=== PATIENT | female | born 1990 | race Caucasian/White ===

== ENCOUNTER 2016-04-27 21:29 | Emergency (ER) | payer BC, MEDICAID ==
[~2016-04-27 21:29] MED LIST: /ESOM40CA GT; ACET50TA PO; DOCU10ELUD PO; IBUP600T26 PO; IBUP80TA PO; KEFL500C7 PO; MOM30SS PO; VALT1TAB PO
--- NOTE | 2016-04-27 23:30 | REPUSA ---
CLINICAL HISTORY: determination. TECHNIQUE: Transabdominal and endovaginal ultrasound of the pelvis was performed. FINDINGS: Anteverted uterus with single live station correlating to 13 weeks, 5 days with expected date of deli very 10/28/2016. heart rate of 157 BPM. motion observed. No subchorionic hemorrhage. Anterior placenta without evidence of previa or abruption. Maternal adnexal and cul-de-sac regions are grossly unremarkable. Both ovaries are grossly unremarkable. No free fluid. IMPRESSION: Anteverted uterus with single live station correlating to 13 weeks, 5 days with expected date of deli very 10/28/2016.
[2016-04-27] MEDS ORDERED: ALBUTEROL SULFATE 2.5 MG/0.5 ML INH NEB SOLN As Ordered ONE (23:48)
[2016-04-28] MEDS ORDERED: ALBUTEROL 90 MCG/ACT 8GM HFA INHALER As Ordered ONE (00:50)
[2016-04-28] MEDS ORDERED: NITROFURANTOIN (MACROBID) 100 MG CAP As Ordered ONE (01:44)
--- NOTE | 2016-04-28 01:56 | EDDOCDS ---
Physician Documentation [facility] Name: Olivia Lowe Age: 26 yrs Sex: Female : 1990 Arrival Date: 04/27/2016 Time: 21:29 Bed PD Private MD: NO PRIMARY PHYSICIAN, . Disposition: 04/28/16 01:43 Discharged to Home/Self Care. Impression: Other specified related conditions - PELVIC CRAMPING, Urinary tract infection, site not specified. - Condition is Stable. - Discharge Instructions: and Urinary Tract Infection. - Prescriptions for Macrobid 100 mg Oral Capsule - take 100 milligram by ORAL route every 12 hours for 10 days; 20 capsule. - Medication Reconciliation, Local Pharmacy Hours form. - Follow up: Private Physician; When: 1 - 2 days; Reason: Recheck today's complaints, Continuance of care. - Problem is new. - Symptoms have improved. - Notes: USE MEDICATION INSTRUTCED, FOLLOW UP WITH YOUR DOCTOR, RETURN TO THE ER IF THE SYMPTOMS WORSEN OR BECOME CONCERNING Historical: - Allergies: SULFA (SULFONAMIDES); - Home Meds: 1. levothyroxine 125 mcg Oral cap 1 cap once daily - PMHx: Hypothyroidism; Thyroid problem; - PSHx: D & C; - Social history: Smoking status: Patient uses tobacco products, light tobacco smoker. No barriers to communication noted, The patient speaks fluent Tunisian, Speaks appropriately for age. - Family history: Not pertinent. - : The pt / caregiver states he / she is not on anticoagulants. Home medication list is obtained from the patient. - Exposure Risk Screening:: None identified. 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 4 in. (162.56 cm) (R); Pain 6/10; 04/28 01:53 BP 126 / 59 LA Sitting (auto/); Pulse 94; Resp 18 S; Temp 97.5(O); Pulse Ox 98% on R/A; af2 04/27 21:31 Body Mass Index 30.90 (81.65 kg, 162.56 cm) gr2 MDM: 04/27 21:58 US 1st trimester Ordered. EDMS 23:27 UA Ordered. EDMS 23:34 Albuterol 5 mg Nebulizer once ordered. le 23:34 Call Respiratory ordered. le 23:43 Call Respiratory complete. sls1 23:49 Financial registration complete. pm4 23:50 [facility] Payment Agreement was scanned into [employer] and attached to record. pm4 04/28 00:47 Ventolin Inhaler 2 puffs Inhalation once; dispense home with patient ordered. le 01:05 US 1st trimester Reviewed. ck7 01:38 UA Reviewed. ck7 01:43 Nitrofurantoin 100 mg PO once ordered. ck7 Administered Medications: 04/27 23:51 Drug: Albuterol 5 mg [albuterol sulfate 2.5 mg/0.5 mL solution for nebulization (1 mL)] jc3 Route: Nebulizer; 04/28 01:53 Follow up: Response: No Adverse Reaction af2 00:52 Drug: Ventolin 2 puffs [Ventolin HFA 90 mcg/actuation aerosol inhaler (2 puffs)] Route: ka4 Inhalation; 01:52 Drug: Nitrofurantoin 100 mg Route: PO; af2 01:53 Follow up: Response: Pt left department before re-evaluation is appropriate af2 Signatures: Dispatcher [employer] EDMS Otto Fairbanks RN RN cz Westcott, Lisa, SENIOR STATISTICIAN SENIOR STATISTICIAN Keren Sellers RN RN sls1 Stew Bearden, RPA-C RPA-Cck7 Donna MerrittRN RN af2 David Irizarry, Reg Reg pm4 Vicente Montoya jc3 Sadie Evans LPN ka4 The chart was reviewed and I authenticate all verbal orders and agree with the evaluation and treatment provided.Attachments: 04/27 23:50 [facility] [place] Payment Agreement pm4 MTDD
--- NOTE | 2016-04-28 01:56 | EDDOCDS ---
Nurse's Notes [facility] Name: Olivia Lowe Age: 26 yrs Sex: Female : 1990 Arrival Date: 04/27/2016 Time: 21:29 Bed PD Private MD: NO PRIMARY PHYSICIAN, . Diagnosis: Other specified related conditions-PELVIC CRAMPING;Urinary tract infection, site not specified Presentation: 04/27 21:33 Presenting complaint: Patient states: low back pain right side to center cramping for 7 cz hours pt is 13 weeks no bleeding. Risk factors: the patient reports no vaginal bleeding. Adult Sepsis Screening: The patient does not have new or worsening altered mentation. Patient's respiratory rate is less than 22. Systolic blood pressure is greater than 100. Patient has a qSOFA score of 0- Negative Sepsis Screen. Suicide/Homicide risk assessment- the patient denies having any suicidal and/or homicidal ideations and does not present with any other emotional, behavioral or mental health complaints. Status: Patient is not a office services representative or dependent. Transition of care: patient was not received from another setting of care. 21:33 Acuity: ALCIDES Level 3 cz 21:33 Method Of Arrival: Walkin/Carried/Asstd cz Triage Assessment: 21:35 General: Appears in no apparent distress. Pain: Location: back and abdomen Pain cz currently is 5 out of 10 on a pain scale. HIV screening NA for this visit Offered previously. 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 levothyroxine 125 mcg Oral cap 1 cap once daily - PMHx: Hypothyroidism; Thyroid problem; - PSHx: D & C; - Social history: Smoking status: Patient uses tobacco products, light tobacco smoker. No barriers to communication noted, The patient speaks fluent Lithuanian, Speaks appropriately for age. - Family history: Not pertinent. - : The pt / caregiver states he / she is not on anticoagulants. Home medication list is obtained from the patient. - Exposure Risk Screening:: None identified. Screenin/18 01:54 Screening information is obtained from the patient. Fall risk: No risks identified. af2 Assistance ADL's: requires no assistance with activities of daily living. Abuse/DV Screen: The patient / caregiver reports he/she is: not in a situation that causes fear, pain or injury. Nutritional screening: No deficits noted. Advance Directives: Currently, there is no health care proxy. home support is adequate. Assessment: 04/27 23:46 General: Appears in no apparent distress, Behavior is appropriate for age, cooperative. sls1 Pain: Denies pain. Neurological: Level of Consciousness is awake, alert. Respiratory: Airway is patent Respiratory effort is even, unlabored, Respiratory pattern is regular, symmetrical. GI: Abdomen is flat, non- distended Bowel sounds present X 4 quads. Abd is soft and non tender X 4 quads. Abd is soft. 04/28 00:34 Reassessment: Patient appears in no apparent distress at this time. Pt reports feeling sls1 better but is still coughing and able to cough up secretions now, will continue to assess. 01:55 General: Appears in no apparent distress, Behavior is appropriate for age, cooperative. af2 Neurological: Level of Consciousness is awake, alert. Respiratory: Airway is patent Respiratory effort is even, unlabored. Derm: Skin is normal. Vital Signs: 04/27 21:31 BP 144 / 74; Pulse 86; Resp 18 S; Temp 98.6(O); Pulse Ox 98% on R/A; Weight 81.65 kg gr2 (R); Height 5 ft. 4 in. (162.56 cm) (R); Pain 6/10; 04/28 01:53 BP 126 / 59 LA Sitting (auto/); Pulse 94; Resp 18 S; Temp 97.5(O); Pulse Ox 98% on R/A; af2 04/27 21:31 Body Mass Index 30.90 (81.65 kg, 162.56 cm) gr2 Vitals: 04/27 21:31 Log In Time: April 27, 2016 at 21:31. gr2 ED Course: 21:30 Patient visited by Donna Whitney. gr2 21:30 NO PRIMARY PHYSICIAN, . is Private Physician. gr2 21:30 Patient moved to Waiting gr2 21:34 Patient visited by Donna Whitney. gr2 21:34 Patient moved to Pre RCE gr2 21:35 Triage Initiated cz 22:32 Patient moved to Ultrasound dm 22:55 Patient moved to Triage 2 mb9 23:16 Klarissa Long FNP is PHCP. le 23:24 Patient visited by Klarissa Long FNP. le 23:24 Patient visited by Klarissa Long FNP. le 23:40 Patient moved to PD2 / 27 af2 23:43 UA Sent. sls1 23:47 Patient visited by Keren Barrow RN. sls1 23:47 Urine collected. Clean catch specimen. Urine specimen sent to lab. sls1 23:50 [facility] Payment Agreement was scanned into [employer] and attached to record. pm4 04/28 00:15 US 1st trimester Returned. EDMS 00:57 Patient visited by Donna Merritt RN. af2 01:02 PHCP role handed off by Klarissa Long FNP ck7 01:02 Stew Bearden RPA-C is PHCP. ck7 01:02 Maximilian Reyes DO is Attending Physician. ck7 01:38 Patient visited by Stew Bearden RPA-C. ck7 01:54 The patient / caregiver is instructed regarding the plan of care and ED course. Patient af2 has correct armband on for positive identification. 01:54 No IV's were initiated during this patient's visit. No procedures done that require af2 assistance. Administered Medications: 04/27 23:51 Drug: Albuterol 5 mg [albuterol sulfate 2.5 mg/0.5 mL solution for nebulization (1 mL)] jc3 Route: Nebulizer; 04/28 01:53 Follow up: Response: No Adverse Reaction af2 00:52 Drug: Ventolin 2 puffs [Ventolin HFA 90 mcg/actuation aerosol inhaler (2 puffs)] Route: ka4 Inhalation; 01:52 Drug: Nitrofurantoin 100 mg Route: PO; af2 01:53 Follow up: Response: Pt left department before re-evaluation is appropriate af2 RT: 04/27 23:51 Initial Med Neb Given as ordered Patient was instructed and evaluated on procedure. jc3 Oxygen is room air. Respiratory: Breath sounds are coarse bilaterally. Breath sounds with wheezes bilaterally. at expiration. Order Results: Lab Order: UA; SPEC'M 04/27/16 23:40 Test: APPEARANCE, URINE; Value: CLOUDY; Range: CLEAR; Abnormal: Above high normal; Status: F Test: COLOR, URINE; Value: YELLOW; Range: YELLOW; Status: F Test: PH,URINE; Value: 6.0; Range: 5.0-9.0; Units: UNITS; Status: F Test: SPECIFIC GRAVITY URINE AUTO; Value: 1.014; Range: 1.002-1.035; Status: F Test: PROTEIN, URINE AUTO; Value: 1+; Range: NEGATIVE; Abnormal: Above high normal; Units: mg/dL; Status: F Test: GLUCOSE, URINE (UA) AUTO; Value: NEGATIVE; Range: NEGATIVE; Units: mg/dL; Status: F Test: KETONE, URINE AUTO; Value: NEGATIVE; Range: NEGATIVE; Units: mg/dL; Status: F Test: UROBILINOGEN, URINE AUTO; Value: 0.2; Range: 0.0-2.0; Units: mg/dL; Status: F Test: BILIRUBIN, URINE AUTO; Value: NEGATIVE; Range: NEGATIVE; Status: F Test: NITRITE, URINE AUTO; Value: POSITIVE; Range: NEGATIVE; Status: F Test: LEUKOCYTE ESTERASE, URINE AUTO; Value: 3+; Range: NEGATIVE; Abnormal: Above high normal; Status: F Test: BLOOD, URINE BLOOD; Value: 2+; Range: NEGATIVE; Abnormal: Above high normal; Status: F Test: WBC, URINE AUTO; Value: 127; Range: 0-3; Abnormal: Above high normal; Units: /HPF; Status: F Test: RBC, URINE AUTO; Value: 40; Range: 0-3; Abnormal: Above high normal; Units: /HPF; Status: F Test: BACTERIA, URINE AUTO; Value: 2+; Range: NEGATIVE; Abnormal: Above high normal; Status: F Test: SQUAMOUS EPITHELIAL CELL UR AU; Value: 4; Range: 0-6; Units: /HPF; Status: F Test: MUCUS, URINE; Value: SMALL; Range: NEGATIVE; Status: F Test: HYALINE CAST, URINE AUTO; Value: 0; Range: 0-1; Units: /LPF; Status: F Test: AMORPHOUS SEDIMENT; Value: SMALL; Range: NEGATIVE; Abnormal: Above high normal; Status: F Radiology Order: US 1st trimester Test: US 1st trimester REASON FOR EXAMINATION: Bleeding; ; CLINICAL HISTORY: determination.; TECHNIQUE: Transabdominal and endovaginal ultrasound of the pelvis was performed.; FINDINGS:; Anteverted uterus with single live station correlating to 13 weeks, 5 days with expected date of deli; very 10/28/2016.; heart rate of 157 BPM. motion observed.; No subchorionic hemorrhage. Anterior placenta without evidence of previa or abruption.; Maternal adnexal and cul-de-sac regions are grossly unremarkable.; Both ovaries are grossly unremarkable.; No free fluid.; IMPRESSION:; Anteverted uterus with single live station correlating to 13 weeks, 5 days with expected date of deli; very 10/28/2016.; ; Outcome: 04/28 01:43 Discharge ordered by Provider. ck7 01:55 Discharge Assessment: Patient awake, alert and oriented x 3. No cognitive and/or af2 functional deficits noted. Patient verbalized understanding of disposition instructions. patient administered narcotics - no. The following High Risk Discharge criteria are identified: None. Discharged to home ambulatory. Condition: stable. Discharge instructions given to patient, Instructed on discharge instructions, follow up and referral plans. medication usage, Demonstrated understanding of instructions, medications, Pt was receptive of discharge instructions/ teaching. No special radiology studies were completed. Property :Personal belongings accompany Pt. 01:55 Patient left the ED. af2 Signatures: Dispatcher [employer] EDMS Otto Fairbanks, YENIFER RN Latanya Beasley Lisa, Vicente Reid jc3 Keren Barrow RN RN sls1 Stew Bearden, RPA-C RPA-Cck7 Donna Whitney gr2 Sadie Evans LPN LPN ka4 Coy Rios,RN RN mb9 Donna MerrittRN RN af2 David Irizarry, Reg Reg pm4 [facility]
--- NOTE | 2016-04-30 02:56 | EDDOCDS ---
Physician Documentation [facility] Name: Olivia Lowe Age: 26 yrs Sex: Female : 1990 Arrival Date: 04/27/2016 Time: 21:29 Bed PD Private MD: NO PRIMARY PHYSICIAN, . Disposition: 04/28/16 01:43 Discharged to Home/Self Care. Impression: Other specified related conditions - PELVIC CRAMPING, Urinary tract infection, site not specified. - Condition is Stable. - Discharge Instructions: and Urinary Tract Infection. - Prescriptions for Macrobid 100 mg Oral Capsule - take 100 milligram by ORAL route every 12 hours for 10 days; 20 capsule. - Medication Reconciliation, Local Pharmacy Hours form. - Follow up: Private Physician; When: 1 - 2 days; Reason: Recheck today's complaints, Continuance of care. - Problem is new. - Symptoms have improved. - Notes: USE MEDICATION INSTRUTCED, FOLLOW UP WITH YOUR DOCTOR, RETURN TO THE ER IF THE SYMPTOMS WORSEN OR BECOME CONCERNING Historical: - Allergies: SULFA (SULFONAMIDES); - Home Meds: 1. levothyroxine 125 mcg Oral cap 1 cap once daily - PMHx: Hypothyroidism; Thyroid problem; - PSHx: D & C; - Social history: Smoking status: Patient uses tobacco products, light tobacco smoker. No barriers to communication noted, The patient speaks fluent Malagasy, Speaks appropriately for age. - Family history: Not pertinent. - : The pt / caregiver states he / she is not on anticoagulants. Home medication list is obtained from the patient. - Exposure Risk Screening:: None identified. 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 4 in. (162.56 cm) (R); Pain 6/10; 04/28 01:53 BP 126 / 59 LA Sitting (auto/); Pulse 94; Resp 18 S; Temp 97.5(O); Pulse Ox 98% on R/A; af2 04/27 21:31 Body Mass Index 30.90 (81.65 kg, 162.56 cm) gr2 MDM: 04/27 21:58 US 1st trimester Ordered. EDMS 23:27 UA Ordered. EDMS 23:34 Albuterol 5 mg Nebulizer once ordered. le 23:34 Call Respiratory ordered. le 23:43 Call Respiratory complete. sls1 23:49 Financial registration complete. pm4 23:50 [facility] [place] Payment Agreement was scanned into [employer] and attached to record. pm4 04/28 00:47 Ventolin Inhaler 2 puffs Inhalation once; dispense home with patient ordered. le 01:05 US 1st trimester Reviewed. ck7 01:38 UA Reviewed. ck7 01:43 Nitrofurantoin 100 mg PO once ordered. ck7 10:59 T-Sheet-- Draft Copy was scanned into [employer] and attached to record. gb Administered Medications: 04/27 23:51 Drug: Albuterol 5 mg [albuterol sulfate 2.5 mg/0.5 mL solution for nebulization (1 mL)] jc3 Route: Nebulizer; 04/28 01:53 Follow up: Response: No Adverse Reaction af2 00:52 Drug: Ventolin 2 puffs [Ventolin HFA 90 mcg/actuation aerosol inhaler (2 puffs)] Route: ka4 Inhalation; 01:52 Drug: Nitrofurantoin 100 mg Route: PO; af2 01:53 Follow up: Response: Pt left department before re-evaluation is appropriate af2 Signatures: Dispatcher [employer] EDMS Otto Fairbanks, RN RN cz Armida Potts, Reg Reg gb Klarissa Long, ELECTROSTATIC PAINTER ELECTROSTATIC PAINTER Keren Sellers, RN RN sls1 Stew Bearden, RPA-C RPA-Cck7 Donna MerrittRN RN af2 David Irizarry, Reg Reg pm4 Vicente Montoya jc3 Sadie Evans LPN ka4 The chart was reviewed and I authenticate all verbal orders and agree with the evaluation and treatment provided.Attachments: 04/27 23:50 [facility] [place] Payment Agreement pm4 04/28 10:59 T-Sheet-- Draft Copy gb Chart Complete MTDD
--- NOTE | 2016-04-30 02:56 | EDDOCDS ---
Nurse's Notes [facility] Name: Olivia Lowe Age: 26 yrs Sex: Female : 1990 Arrival Date: 04/27/2016 Time: 21:29 Bed PD Private MD: NO PRIMARY PHYSICIAN, . Diagnosis: Other specified related conditions-PELVIC CRAMPING;Urinary tract infection, site not specified Presentation: 04/27 21:33 Presenting complaint: Patient states: low back pain right side to center cramping for 7 cz hours pt is 13 weeks no bleeding. Risk factors: the patient reports no vaginal bleeding. Adult Sepsis Screening: The patient does not have new or worsening altered mentation. Patient's respiratory rate is less than 22. Systolic blood pressure is greater than 100. Patient has a qSOFA score of 0- Negative Sepsis Screen. Suicide/Homicide risk assessment- the patient denies having any suicidal and/or homicidal ideations and does not present with any other emotional, behavioral or mental health complaints. Status: Patient is not a children's service worker or dependent. Transition of care: patient was not received from another setting of care. 21:33 Acuity: ALCIDES Level 3 cz 21:33 Method Of Arrival: Walkin/Carried/Asstd cz Triage Assessment: 21:35 General: Appears in no apparent distress. Pain: Location: back and abdomen Pain cz currently is 5 out of 10 on a pain scale. 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 levothyroxine 125 mcg Oral cap 1 cap once daily - PMHx: Hypothyroidism; Thyroid problem; - PSHx: D & C; - Social history: Smoking status: Patient uses tobacco products, light tobacco smoker. No barriers to communication noted, The patient speaks fluent Nigerian, Speaks appropriately for age. - Family history: Not pertinent. - : The pt / caregiver states he / she is not on anticoagulants. Home medication list is obtained from the patient. - Exposure Risk Screening:: None identified. Screenin/18 01:54 Screening information is obtained from the patient. Fall risk: No risks identified. af2 Assistance ADL's: requires no assistance with activities of daily living. Abuse/DV Screen: The patient / caregiver reports he/she is: not in a situation that causes fear, pain or injury. Nutritional screening: No deficits noted. Advance Directives: Currently, there is no health care proxy. home support is adequate. Assessment: 04/27 23:46 General: Appears in no apparent distress, Behavior is appropriate for age, cooperative. sls1 Pain: Denies pain. Neurological: Level of Consciousness is awake, alert. Respiratory: Airway is patent Respiratory effort is even, unlabored, Respiratory pattern is regular, symmetrical. GI: Abdomen is flat, non- distended Bowel sounds present X 4 quads. Abd is soft and non tender X 4 quads. Abd is soft. 04/28 00:34 Reassessment: Patient appears in no apparent distress at this time. Pt reports feeling sls1 better but is still coughing and able to cough up secretions now, will continue to assess. 01:55 General: Appears in no apparent distress, Behavior is appropriate for age, cooperative. af2 Neurological: Level of Consciousness is awake, alert. Respiratory: Airway is patent Respiratory effort is even, unlabored. Derm: Skin is normal. Vital Signs: 04/27 21:31 BP 144 / 74; Pulse 86; Resp 18 S; Temp 98.6(O); Pulse Ox 98% on R/A; Weight 81.65 kg gr2 (R); Height 5 ft. 4 in. (162.56 cm) (R); Pain 6/10; 04/28 01:53 BP 126 / 59 LA Sitting (auto/); Pulse 94; Resp 18 S; Temp 97.5(O); Pulse Ox 98% on R/A; af2 04/27 21:31 Body Mass Index 30.90 (81.65 kg, 162.56 cm) gr2 Vitals: 04/27 21:31 Log In Time: April 27, 2016 at 21:31. gr2 ED Course: 21:30 Patient visited by Donna Whitney. gr2 21:30 NO PRIMARY PHYSICIAN, . is Private Physician. gr2 21:30 Patient moved to Waiting gr2 21:34 Patient visited by Donna Whitney. gr2 21:34 Patient moved to Pre RCE gr2 21:35 Triage Initiated cz 22:32 Patient moved to Ultrasound dm 22:55 Patient moved to Triage 2 mb9 23:16 Klarissa Long FNP is PHCP. le 23:24 Patient visited by Klarissa Long FNP. le 23:24 Patient visited by Klarissa Long FNP. le 23:40 Patient moved to PD2 / 27 af2 23:43 UA Sent. sls1 23:47 Patient visited by Keren Barrow RN. sls1 23:47 Urine collected. Clean catch specimen. Urine specimen sent to lab. sls1 23:50 ON LICENSE OF [facility] Payment Agreement was scanned into [employer] and attached to record. pm4 04/28 00:15 US 1st trimester Returned. EDMS 00:57 Patient visited by Donna Merritt RN. af2 01:02 PHCP role handed off by Klarissa Long FNP ck7 01:02 Stew Bearden RPA-C is PHCP. ck7 01:02 Maximilian Reyes DO is Attending Physician. ck7 01:38 Patient visited by Stew Bearden RPA-C. ck7 01:54 The patient / caregiver is instructed regarding the plan of care and ED course. Patient af2 has correct armband on for positive identification. 01:54 No IV's were initiated during this patient's visit. No procedures done that require af2 assistance. 10:59 T-Sheet-- Draft Copy was scanned into [employer] and attached to record. gb Administered Medications: 04/27 23:51 Drug: Albuterol 5 mg [albuterol sulfate 2.5 mg/0.5 mL solution for nebulization (1 mL)] jc3 Route: Nebulizer; 04/28 01:53 Follow up: Response: No Adverse Reaction af2 00:52 Drug: Ventolin 2 puffs [Ventolin HFA 90 mcg/actuation aerosol inhaler (2 puffs)] Route: ka4 Inhalation; 01:52 Drug: Nitrofurantoin 100 mg Route: PO; af2 01:53 Follow up: Response: Pt left department before re-evaluation is appropriate af2 RT: 04/27 23:51 Initial Med Neb Given as ordered Patient was instructed and evaluated on procedure. jc3 Oxygen is room air. Respiratory: Breath sounds are coarse bilaterally. Breath sounds with wheezes bilaterally. at expiration. Order Results: Lab Order: UA; SPEC'M 04/27/16 23:40 Test: APPEARANCE, URINE; Value: CLOUDY; Range: CLEAR; Abnormal: Above high normal; Status: F Test: COLOR, URINE; Value: YELLOW; Range: YELLOW; Status: F Test: PH,URINE; Value: 6.0; Range: 5.0-9.0; Units: UNITS; Status: F Test: SPECIFIC GRAVITY URINE AUTO; Value: 1.014; Range: 1.002-1.035; Status: F Test: PROTEIN, URINE AUTO; Value: 1+; Range: NEGATIVE; Abnormal: Above high normal; Units: mg/dL; Status: F Test: GLUCOSE, URINE (UA) AUTO; Value: NEGATIVE; Range: NEGATIVE; Units: mg/dL; Status: F Test: KETONE, URINE AUTO; Value: NEGATIVE; Range: NEGATIVE; Units: mg/dL; Status: F Test: UROBILINOGEN, URINE AUTO; Value: 0.2; Range: 0.0-2.0; Units: mg/dL; Status: F Test: BILIRUBIN, URINE AUTO; Value: NEGATIVE; Range: NEGATIVE; Status: F Test: NITRITE, URINE AUTO; Value: POSITIVE; Range: NEGATIVE; Status: F Test: LEUKOCYTE ESTERASE, URINE AUTO; Value: 3+; Range: NEGATIVE; Abnormal: Above high normal; Status: F Test: BLOOD, URINE BLOOD; Value: 2+; Range: NEGATIVE; Abnormal: Above high normal; Status: F Test: WBC, URINE AUTO; Value: 127; Range: 0-3; Abnormal: Above high normal; Units: /HPF; Status: F Test: RBC, URINE AUTO; Value: 40; Range: 0-3; Abnormal: Above high normal; Units: /HPF; Status: F Test: BACTERIA, URINE AUTO; Value: 2+; Range: NEGATIVE; Abnormal: Above high normal; Status: F Test: SQUAMOUS EPITHELIAL CELL UR AU; Value: 4; Range: 0-6; Units: /HPF; Status: F Test: MUCUS, URINE; Value: SMALL; Range: NEGATIVE; Status: F Test: HYALINE CAST, URINE AUTO; Value: 0; Range: 0-1; Units: /LPF; Status: F Test: AMORPHOUS SEDIMENT; Value: SMALL; Range: NEGATIVE; Abnormal: Above high normal; Status: F Radiology Order: US 1st trimester Test: US 1st trimester REASON FOR EXAMINATION: Bleeding; ; CLINICAL HISTORY: determination.; TECHNIQUE: Transabdominal and endovaginal ultrasound of the pelvis was performed.; FINDINGS:; Anteverted uterus with single live station correlating to 13 weeks, 5 days with expected date of deli; very 10/28/2016.; heart rate of 157 BPM. motion observed.; No subchorionic hemorrhage. Anterior placenta without evidence of previa or abruption.; Maternal adnexal and cul-de-sac regions are grossly unremarkable.; Both ovaries are grossly unremarkable.; No free fluid.; IMPRESSION:; Anteverted uterus with single live station correlating to 13 weeks, 5 days with expected date of deli; very 10/28/2016.; ; Outcome: 04/28 01:43 Discharge ordered by Provider. ck7 01:55 Discharge Assessment: Patient awake, alert and oriented x 3. No cognitive and/or af2 functional deficits noted. Patient verbalized understanding of disposition instructions. patient administered narcotics - no. The following High Risk Discharge criteria are identified: None. Discharged to home ambulatory. Condition: stable. Discharge instructions given to patient, Instructed on discharge instructions, follow up and referral plans. medication usage, Demonstrated understanding of instructions, medications, Pt was receptive of discharge instructions/ teaching. No special radiology studies were completed. Property :Personal belongings accompany Pt. 01:55 Patient left the ED. af2 Signatures: Dispatcher [employer] EDMS Otto Fairbanks, RN RN Latanya Beasley Armida Macias, Reg Reg gb Klarissa Long, [employer] Vicente Hansen jc3 Keren Barrow, RN RN sls1 Stew Bearden, RPA-C RPA-Cck7 Donna Whitney gr2 Sadie Evans LPN LPN ka4 Coy Rios,YENIFER RN mb9 Donna Merritt RN RN af2 David Irizarry, Reg Reg pm4 Chart Complete MTDD
--- NOTE | 2016-04-30 02:57 | EDDOCDS ---
Physician Documentation [facility] Name: Olivia Lowe Age: 26 yrs Sex: Female : 1990 Arrival Date: 04/27/2016 Time: 21:29 Bed PD Private MD: NO PRIMARY PHYSICIAN, . Disposition: 04/28/16 01:43 Discharged to Home/Self Care. Impression: Other specified related conditions - PELVIC CRAMPING, Urinary tract infection, site not specified. - Condition is Stable. - Discharge Instructions: and Urinary Tract Infection. - Prescriptions for Macrobid 100 mg Oral Capsule - take 100 milligram by ORAL route every 12 hours for 10 days; 20 capsule. - Medication Reconciliation, Local Pharmacy Hours form. - Follow up: Private Physician; When: 1 - 2 days; Reason: Recheck today's complaints, Continuance of care. - Problem is new. - Symptoms have improved. - Notes: USE MEDICATION INSTRUTCED, FOLLOW UP WITH YOUR DOCTOR, RETURN TO THE ER IF THE SYMPTOMS WORSEN OR BECOME CONCERNING Historical: - Allergies: SULFA (SULFONAMIDES); - Home Meds: 1. levothyroxine 125 mcg Oral cap 1 cap once daily - PMHx: Hypothyroidism; Thyroid problem; - PSHx: D & C; - Social history: Smoking status: Patient uses tobacco products, light tobacco smoker. No barriers to communication noted, The patient speaks fluent French, Speaks appropriately for age. - Family history: Not pertinent. - : The pt / caregiver states he / she is not on anticoagulants. Home medication list is obtained from the patient. - Exposure Risk Screening:: None identified. 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 4 in. (162.56 cm) (R); Pain 6/10; 04/28 01:53 BP 126 / 59 LA Sitting (auto/); Pulse 94; Resp 18 S; Temp 97.5(O); Pulse Ox 98% on R/A; af2 04/27 21:31 Body Mass Index 30.90 (81.65 kg, 162.56 cm) gr2 MDM: 04/27 21:58 US 1st trimester Ordered. EDMS 23:27 UA Ordered. EDMS 23:34 Albuterol 5 mg Nebulizer once ordered. le 23:34 Call Respiratory ordered. le 23:43 Call Respiratory complete. sls1 23:49 Financial registration complete. pm4 23:50 [facility] Payment Agreement was scanned into [employer] and attached to record. pm4 04/28 00:47 Ventolin Inhaler 2 puffs Inhalation once; dispense home with patient ordered. le 01:05 US 1st trimester Reviewed. ck7 01:38 UA Reviewed. ck7 01:43 Nitrofurantoin 100 mg PO once ordered. ck7 10:59 T-Sheet-- Draft Copy was scanned into [employer] and attached to record. gb Administered Medications: 04/27 23:51 Drug: Albuterol 5 mg [albuterol sulfate 2.5 mg/0.5 mL solution for nebulization (1 mL)] jc3 Route: Nebulizer; 04/28 01:53 Follow up: Response: No Adverse Reaction af2 00:52 Drug: Ventolin 2 puffs [Ventolin HFA 90 mcg/actuation aerosol inhaler (2 puffs)] Route: ka4 Inhalation; 01:52 Drug: Nitrofurantoin 100 mg Route: PO; af2 01:53 Follow up: Response: Pt left department before re-evaluation is appropriate af2 Signatures: Dispatcher [employer] EDMS Otto Fairbanks, RN RN cz Armida Potts, Reg Reg gb Klarissa Long, GEOLOGY ASSOCIATE GEOLOGY ASSOCIATE Keren Sellers, RN RN sls1 Stew Bearden, RPA-C RPA-Cck7 Donna MerrittRN RN af2 David Irizarry, Reg Reg pm4 Vicente Montoya jc3 Sadie Evans LPN ka4 The chart was reviewed and I authenticate all verbal orders and agree with the evaluation and treatment provided.Attachments: 04/27 23:50 [facility] Payment Agreement pm4 04/28 10:59 T-Sheet-- Draft Copy gb Chart Complete MTDD
== END 2016-04-28 01:55 | disposition home or self-care (01) ==
LOC: M ED 21:29
DX: O23.31 Infections of other parts of urinary tract in pregnancy, first trimester (principal); Z3A.13 13 weeks gestation of pregnancy; O99.281 Endocrine, nutritional and metabolic diseases complicating pregnancy, first trimester; Z79.899 Other long term (current) drug therapy; Z88.2 Allergy status to sulfonamides; O99.331 Smoking (tobacco) complicating pregnancy, first trimester

== ENCOUNTER → 2016-05-11 | Outpatient (REF) | payer MEDICAID ==
[2016-05-11 19:29] LABS: FREE T4 0.94 NG/DL (0.76-1.46)
[2016-05-11 21:25] LABS: MEAN CORPUSCULAR HEMOGLOBIN 29.6 pg (27.0-33.0); MEAN CORPUSCULAR HGB CONC 33.4 g/dl (32.0-36.5); MEAN CORPUSCULAR VOLUME 88.6 fl (80.0-96.0); RED CELL DISTRIBUTION WIDTH 14.3 % (11.5-14.5); WHITE BLOOD COUNT 12.8 K/mm3 (4.0-10.0)
[2016-05-12 09:48] LABS: CONTROL LINE INT CTR LINE PRESENT; HIV SCRN NEGATIVE (NEGATIVE); HIV SCRN1 NEGATIVE (NEGATIVE)
[2016-05-12 09:54] LABS: HEPATITIS B SURFACE ANTIBODY NEGATIVE (POSITIVE)
== END ==
LOC: M LAB REF 16:45
PROVIDERS: ATTEND Obstetrics & Gynecology
DX: Z34.82 Encounter for supervision of other normal pregnancy, second trimester (principal)

== ENCOUNTER → 2016-05-18 | Outpatient (CLI) | payer MEDICAID ==
[2016-05-18 12:26] LABS: MEAN CORPUSCULAR HEMOGLOBIN 29.9 pg (27.0-33.0); MEAN CORPUSCULAR HGB CONC 33.8 g/dl (32.0-36.5); MEAN CORPUSCULAR VOLUME 88.4 fl (80.0-96.0); RED CELL DISTRIBUTION WIDTH 13.4 % (11.5-14.5); WHITE BLOOD COUNT 10.5 K/mm3 (4.0-10.0)
[2016-05-18 12:46] LABS: ANION GAP 9 MEQ/L (8-16); BLOOD UREA NITROGEN 8 MG/DL (7-18); CALCIUM LEVEL 8.4 MG/DL (8.5-10.1); CARBON DIOXIDE LEVEL 27 MEQ/L (21-32); CHLORIDE LEVEL 102 MEQ/L (98-107); CHOLESTEROL LEVEL 227 MG/DL (<200); FREE T4 0.92 NG/DL (0.76-1.46); GLOMERULAR FILTRATION RATE > 60.0 (>60); GLUCOSE, FASTING 58 MG/DL (70-105); SODIUM LEVEL 138 MEQ/L (136-145); TRIGLYCERIDES LEVEL 151 MG/DL (<150)
== END ==
LOC: M LAB 11:11
PROVIDERS: ATTEND Nurse Practitioner Family
DX: D64.9 Anemia, unspecified (principal)

== ENCOUNTER → 2016-05-19 | Outpatient (REF) | payer MEDICAID | LOC: M LAB REF 16:38 | PROVIDERS: ATTEND Obstetrics & Gynecology | DX: Z34.01 Encounter for supervision of normal first pregnancy, first trimester (principal) ==

== ENCOUNTER → 2016-06-29 | Outpatient (REF) | payer MEDICAID | LOC: M LAB REF 12:40 | PROVIDERS: ATTEND Obstetrics & Gynecology | DX: Z34.83 Encounter for supervision of other normal pregnancy, third trimester (principal) ==

== ENCOUNTER → 2016-07-01 | Outpatient (CLI) | payer MEDICAID ==
--- NOTE | 2016-07-02 08:50 | REP ---
Clinical: Anatomical evaluation. Comparison: 04/27/2016 . Findings: Examination demonstrates a single live intrauterine in cephalic presentation. motion is identified by technologist. Placenta is noted anteriorly and grade zero without evidence for placenta previa or abruption. Amniotic fluid volume is normal. Cervix measures 3.7 cm in length and appears closed. No evidence for nuchal cord. Gestational age by LMP 22 weeks 4 days with FARIBA 10/31/2016 . Gestational age by current measurements 22 weeks 0 days with FARIBA 11/04/2016 . FHR equals 141 beats per minute. BPD 5.4 cm 22 weeks 2 days HC 19.5 cm 21 weeks 5 days AC 17.5 cm 22 weeks 3 days FL 3.7 cm 21 weeks 5 days HL 3.4 cm 21 weeks 5 days HC/AC ratio 1.11 Estimated weight 477 grams ( 30th percentile). Anatomical assessment demonstrates normal structures including cranium, choroid plexus, cavum, cerebellum/posterior fossa, facial features, lungs, four-chamber heart/ventricular outflow tracts, diaphragm, stomach, cord insertion/three-vessel cord, kidneys/bladder, spine, and extremities. Impression: Single live intrauterine in cephalic presentation demonstrating appropriate interval growth. Anatomical assessment is complete and normal. No gross abnormalities are identified. Signed by Tony Stock MD 07/02/2016 08:41 A
== END ==
LOC: M RAD 16:46
PROVIDERS: ATTEND Advanced Practice Midwife
DX: Z36 Encounter for antenatal screening of mother (principal); Z3A.22 22 weeks gestation of pregnancy

== ENCOUNTER 2016-07-12 10:55 | Emergency (ER) | payer MEDICAID ==
[~2016-07-12] VITALS: Ht 162.6 cm; Wt 90.7 kg
[~2016-07-12 10:55] MED LIST changes: -ERYTOIN8 TOP; -LEVO125T3; -PRENTAB7
[2016-07-12 10:56] VITALS: BP 123/67
[2016-07-12] MEDS ORDERED: PRENTAB7 (11:04)
[2016-07-12] MEDS ORDERED: LEVO125T3 (11:04)
[2016-07-12] MEDS ORDERED: ERYTOIN8 TOP (12:11)
== END 2016-07-12 12:22 | disposition home or self-care (01) ==
LOC: M ED 12:08
DX: H01.004 Unspecified blepharitis left upper eyelid (principal); Z79.899 Other long term (current) drug therapy; Z88.2 Allergy status to sulfonamides

== ENCOUNTER → 2016-07-12 | Outpatient (CLI) | payer MEDICAID ==
[~2016-07-12] MED LIST changes: +ERYTOIN8 TOP; +LEVO125T3; +PRENTAB7
[2016-07-12 14:03] LABS: FREE T4 1.06 NG/DL (0.76-1.46)
== END ==
LOC: M LAB 12:44
PROVIDERS: ATTEND Nurse Practitioner Family
DX: E03.9 Hypothyroidism, unspecified (principal)

== ENCOUNTER 2016-07-31 11:23 | Emergency (ER) | payer MEDICAID ==
[~2016-07-31] VITALS: Ht 162.6 cm; Wt 90.7 kg
[~2016-07-31 11:23] MED LIST changes: +ERYTOIN8 TOP; +LEVO125T3; +PRENTAB7
[2016-07-31] MEDS ORDERED: IPRATROPIUM 0.5MG/ALBUTEROL 2.5MG INH SOL UD 3ML (DUONEB)(J7620) NEB ONE (12:00)
[2016-07-31] MEDS ORDERED: AMOX500C PO (12:43)
[2016-07-31] MEDS ORDERED: ALBU83IN INH (12:43)
[2016-07-31] MEDS ORDERED: GUAISYP5 PO (12:43)
[2016-07-31 12:53] VITALS: BP 152/84
== END 2016-07-31 12:55 | disposition home or self-care (01) ==
LOC: M ED 12:04
DX: J44.0 Chronic obstructive pulmonary disease with (acute) lower respiratory infection (principal); Z79.899 Other long term (current) drug therapy; Z88.2 Allergy status to sulfonamides; F17.210 Nicotine dependence, cigarettes, uncomplicated

== ENCOUNTER → 2016-08-10 | Outpatient (CLI) | payer MEDICAID ==
[~2016-08-10] MED LIST changes: +ALBU83IN INH; +AMOX500C PO; +GUAISYP5 PO
[2016-08-10 14:22] LABS: MEAN CORPUSCULAR HEMOGLOBIN 29.7 pg (27.0-33.0); MEAN CORPUSCULAR HGB CONC 32.2 g/dl (32.0-36.5); MEAN CORPUSCULAR VOLUME 92.3 fl (80.0-96.0); RED CELL DISTRIBUTION WIDTH 13.4 % (11.5-14.5); WHITE BLOOD COUNT 11.7 K/mm3 (4.0-10.0)
== END ==
LOC: M LAB 11:41
PROVIDERS: ATTEND Advanced Practice Midwife
DX: Z34.82 Encounter for supervision of other normal pregnancy, second trimester (principal)

== ENCOUNTER 2016-08-16 13:26 | Outpatient (CLI) | payer MEDICAID ==
[~2016-08-16] VITALS: Ht 162.6 cm; Wt 96.0 kg
[2016-08-16 13:44] VITALS: BP 127/67
[2016-08-16 14:23] VITALS: BP 110/65
[2016-08-16 15:25] VITALS: BP 113/69
[2016-08-16 17:27] VITALS: BP 124/76
== END 2016-08-16 18:10 | disposition home or self-care (01) ==
LOC: M LDO 13:26
PROVIDERS: ATTEND Obstetrics & Gynecology
DX: O26.893 Other specified pregnancy related conditions, third trimester (principal); N89.9 Noninflammatory disorder of vagina, unspecified; Z3A.29 29 weeks gestation of pregnancy; O99.283 Endocrine, nutritional and metabolic diseases complicating pregnancy, third trimester; O99.343 Other mental disorders complicating pregnancy, third trimester; Z91.419 Personal history of unspecified adult abuse

== ENCOUNTER → 2016-09-08 | Outpatient (REF) | payer BC, MEDICAID ==
[2016-09-08 19:03] LABS: FREE T4 0.77 NG/DL (0.76-1.46)
== END ==
LOC: M LAB REF 16:34
PROVIDERS: ATTEND Obstetrics & Gynecology
DX: Z34.83 Encounter for supervision of other normal pregnancy, third trimester (principal)

== ENCOUNTER → 2016-09-30 | Outpatient (REF) | payer BC, MEDICAID | LOC: M LAB REF 16:40 | PROVIDERS: ATTEND Obstetrics & Gynecology | DX: Z34.83 Encounter for supervision of other normal pregnancy, third trimester (principal); Z3A.35 35 weeks gestation of pregnancy ==

== ENCOUNTER → 2016-10-14 | Outpatient (REF) | payer MEDICAID, OTHER ==
[~2016-10-14] MED LIST changes: +ADVI200C5 PO; +KEFL500C17 PO; -KEFL500C7 PO; -LEVO125T3; +LEVO125T4; +LEVO137T2 PO; +PERC5TAB12 PO; +VALA500T2 PO
== END ==
LOC: M LAB REF 16:53
PROVIDERS: ATTEND Advanced Practice Midwife
DX: O99.283 Endocrine, nutritional and metabolic diseases complicating pregnancy, third trimester (principal); Z3A.00 Weeks of gestation of pregnancy not specified

== ENCOUNTER → 2016-10-15 | Outpatient (REF) | payer MEDICAID, OTHER | LOC: M LAB REF 15:50 | PROVIDERS: ATTEND Advanced Practice Midwife | DX: R03.0 Elevated blood-pressure reading, without diagnosis of hypertension (principal) ==

== ENCOUNTER 2016-10-18 15:54 | Inpatient (IN) | payer MEDICAID, OTHER ==
[~2016-10-18] VITALS: Ht 162.6 cm; Wt 103.0 kg
[~2016-10-18 15:54] MED LIST changes: -ADVI200C5 PO; -LEVO137T2 PO; -PERC5TAB12 PO; -VALA500T2 PO
[2016-10-18] MEDS ORDERED: miSOPROStol 50 MCG 1/2 TAB (S0191) PO ONE ×2 (16:15→21:00)
[2016-10-18 16:24] VITALS: BP 134/74
[2016-10-18 17:08] LABS: MEAN CORPUSCULAR HEMOGLOBIN 27.2 pg (27.0-33.0); MEAN CORPUSCULAR HGB CONC 32.6 g/dl (32.0-36.5); MEAN CORPUSCULAR VOLUME 83.2 fl (80.0-96.0); RED CELL DISTRIBUTION WIDTH 14.5 % (11.5-14.5)
[2016-10-18 17:33] LABS: ALT/SGPT 15 U/L (12-78); AST/SGOT 12 U/L (15-37); BILIRUBIN,TOTAL 0.2 MG/DL (0.2-1.0); CREATININE FOR GFR 0.55 MG/DL (0.55-1.02); GLOMERULAR FILTRATION RATE > 60.0 (>60); URIC ACID 3.8 MG/DL (2.6-6.0)
[2016-10-18 17:34] VITALS: BP 117/69
[2016-10-18] MEDS ORDERED: PENICILLIN G POTASSIUM IV 5 MU in D5W MINI-BAG PLUS 100 ML IV STA (17:50)
[2016-10-18 18:57] VITALS: BP 141/71
[2016-10-18 20:33] VITALS: BP 124/74
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
[2016-10-18] MEDS ORDERED: LEVOTHYROXINE 137MCG TABLET (0.137MG) PO SCH (21:00)
--- NOTE | 2016-10-18 21:01 | IPNPDOC ---
Date Seen The patient was seen on 10/18/16 at 2049. Progress Note SUBJECTIVE: Patient reports occasional contractions and some cramping. Still complaining of epigastric pain. Denies headache or visual changes. OBJECTIVE: heart rate baseline is 135 bpm, moderate variability, positive accelerations, prolonged accelerations noted, no decelerations noted. Contractions are occasionally. VITAL SIGNS: Please see below. ASSESSMENT: IUP at 38 weeks 1 day gestation, preeclampsia was severe features, hypothyroidism, HSV-2, category 1 heart rate tracing. PLAN: Continue with Cytotec induction. Consider Pitocin as next step. Anticipate cervical ripening. VS, I&O, 24H, Fishbone Vital Signs/I&O Vital Signs Date Time Temp Pulse Resp B/P (MAP) Pulse Ox O2 Delivery O2 Flow Rate FiO2 10/18/16 18:57 90 18 141/71 (94) 10/18/16 17:34 99.0 Laboratory Data 24H LABS Laboratory Tests 2 10/18/16 16:01: Serology Scanned Report Hepatitis B Testing 10/18/16 16:55: Urine Random Creatinine 36.6, Urine Random Total Protein 6.4, Glomerular Filtration Rate > 60.0, Creatinine 0.55, Aspartate Amino Transf (AST/SGOT) 12L, Alanine Aminotransferase (ALT/SGPT) 15, Lactate Dehydrogenase 184, Total Bilirubin 0.2, Uric Acid 3.8 CBC/BMP Laboratory Tests 10/18/16 16:55 Red Blood Count 3.80 L, Mean Corpuscular Volume 83.2, Mean Corpuscular Hemoglobin 27.2, Mean Corpuscular Hemoglobin Concent 32.6, Red Cell Distribution Width 14.5, Aspartate Amino Transf (AST/SGOT) 12 L, Alanine Aminotransferase (ALT/SGPT) 15, Lactate Dehydrogenase 184, Total Bilirubin 0.2, Uric Acid 3.8 ABRIL TELLEZ CNM Oct 18, 2016 21:01
[2016-10-18] MEDS ORDERED: valACYclovir HCL 500 MG TAB PO ONE (21:15)
[2016-10-18] MEDS: PENICILLIN G POTASSIUM IV 2.5 MU in D5W 100 ML IV SCH (22:44)
[2016-10-18 23:56] VITALS: BP 118/74
[2016-10-19] VITALS (70 sets, daily range): BP systolic 94–156; BP diastolic 50–92
[2016-10-19] MEDS ORDERED: FENTANYL 2MCG/ML ROPIVACAINE 0.2% IN 0.9% NACL 200ML IVBAG As Ordered ONE (00:15)
[2016-10-19] MEDS ORDERED: OXYTOCIN DRIP 30 UNITS in APPROPRIATE DILUENT 1 EA IV SCH ×2 (02:00→13:00)
[2016-10-19] MEDS: PENICILLIN G POTASSIUM IV 2.5 MU in D5W 100 ML IV SCH ×3 (02:09→10:32)
[2016-10-19] MEDS: LR 1,000 ML IV SCH ×2 (05:58→11:42)
[2016-10-19 08:53] LABS: MEAN CORPUSCULAR HEMOGLOBIN 27.2 pg (27.0-33.0); MEAN CORPUSCULAR HGB CONC 32.1 g/dl (32.0-36.5); MEAN CORPUSCULAR VOLUME 84.5 fl (80.0-96.0); RED CELL DISTRIBUTION WIDTH 14.5 % (11.5-14.5); WHITE BLOOD COUNT 10.5 K/mm3 (4.0-10.0)
[2016-10-19] MEDS ORDERED: EPIDURAL/PCA KEYS XX PRN (09:00)
[2016-10-19] MEDS ORDERED: ADACEL/BOOSTRIX VACCINE (DIPHTH/PERTUSS/ACELL/TETANUS)0.5ML SYR (90715) IM SCH (09:00)
[2016-10-19] MEDS ORDERED: NALOXONE INJ 0.4 MG/1 ML VIAL (J2310) IV PRN (09:00)
[2016-10-19] MEDS ORDERED: REFRIGERATOR IV KEYS XX PRN (09:00)
[2016-10-19] MEDS ORDERED: ePHEDrine SULFATE 25 MG/5 ML(5MG/ML) SYRINGE IV PRN (09:00)
[2016-10-19] MEDS ORDERED: ONDANSETRON 4MG/2ML VIAL (J2405) IV PRN (09:00)
[2016-10-19] MEDS ORDERED: diphenhydrAMINE INJ 50MG/ML VIAL (J1200) IV PRN (09:00)
[2016-10-19] MEDS ORDERED: EPIDURAL COMMENT XX SCH (09:00)
[2016-10-19] MEDS ORDERED: LACTATED RINGER'S 1000 ML IV PRN (09:00)
[2016-10-19] MEDS ORDERED: FENTANYL/ROPIVACAINE/NACL BAG 200 ML EPIDURAL SCH (09:00)
[2016-10-19 09:19] LABS: ALT/SGPT 11 U/L (12-78); AST/SGOT 13 U/L (15-37); BILIRUBIN,TOTAL 0.3 MG/DL (0.2-1.0); CREATININE FOR GFR 0.46 MG/DL (0.55-1.02); GLOMERULAR FILTRATION RATE > 60.0 (>60); URIC ACID 3.4 MG/DL (2.6-6.0)
[2016-10-19] MEDS ORDERED: DOCUSATE SODIUM 100 MG CAP PO PRN (13:00)
[2016-10-19] MEDS ORDERED: RHOGAM 300 MCG (1500 IU) INJ (J2790) IM SCH (13:00)
[2016-10-19] MEDS ORDERED: METHYLERGONOVINE MALEATE 0.2 MG TAB PO PRN (13:00)
[2016-10-19] MEDS ORDERED: MEASLES,MUMPS,RUBELLA VACCINE INJ (MMR-II) (90707) SC SCH (13:00)
[2016-10-19] MEDS ORDERED: DIBUCAINE 1% OINTMENT 30GM TOP PRN (13:00)
[2016-10-19] MEDS ORDERED: ANUSOL HC CREAM 30GM TOP PRN (13:00)
[2016-10-19 13:10] LABS: CORD GAS ABE A -2.8; CORD GAS HCO3 A 25.1 MEQ/L; CORD GAS O2 SAT A 50.5 %; CORD GAS PCO2 A 55.3 mmHg; CORD GAS PH A 7.274 UNITS; CORD GAS PO2 A 23.2 mmHg; CORD GAS SBC A 20.9 MEQ/L; CORD GAS TCO2 A 26.8 MEQ/L
[2016-10-19] MEDS: PRENATAL VITAMINS CHEWABLE TABLET PO SCH (18:27)
[2016-10-19] MEDS: IBUPROFEN 800 MG TAB PO PRN (18:49)
[2016-10-19] MEDS: ACETAMINOPHEN 500 MG TAB PO PRN (20:43)
[2016-10-20] MEDS: ACETAMINOPHEN 500 MG TAB PO PRN ×2 (00:37→09:36)
[2016-10-20] MEDS: IBUPROFEN 800 MG TAB PO PRN ×2 (03:16→17:37)
[2016-10-20 05:40] VITALS: BP 115/76
[2016-10-20] MEDS: PRENATAL VITAMINS CHEWABLE TABLET PO SCH (08:52)
--- NOTE | 2016-10-20 09:45 | DN ---
DATE OF DELIVERY: 10/19/2016 Olivia is a 26-year-old female day, 8, para 3-0-4-3 who was admitted at 38 weeks' gestation for an induction due to preeclampsia. She underwent Cytotec followed by Pitocin induction. She then progressed to fully dilated, pushed and delivered a live female in right occiput anterior position with a tight nuchal cord. There was cord that was cut on the perineum. scores 9 and 9. weight 5 pounds 10 ounces. Placenta delivered spontaneously intact. Three-vessel cord. The perineum, vagina, and cervix inspected. No laceration noted. Estimated blood loss 300 mL.
[2016-10-20 18:05] VITALS: BP 131/82
[2016-10-21] MEDS: IBUPROFEN 800 MG TAB PO PRN (03:21)
[2016-10-21 05:58] VITALS: BP 134/73
[2016-10-21] MEDS: PRENATAL VITAMINS CHEWABLE TABLET PO SCH (08:34)
[2016-10-21] MEDS ORDERED: ADVI200C5 PO (10:28)
[2016-10-21] MEDS ORDERED: ACET50TA PO (10:28)
[2016-12-23] MEDS ORDERED: VALA500T2 PO (13:47)
[2016-12-23] MEDS ORDERED: LEVO137T2 PO (13:47)
[2016-12-31] MEDS ORDERED: PERC5TAB12 PO (09:33)
== END 2016-10-21 14:40 | disposition home or self-care (01) | DRG 560 ==
LOC: M LDI 15:54 → M OBS 10-19 14:59
PROVIDERS: ADMIT Advanced Practice Midwife; ATTEND Advanced Practice Midwife
PROC: 10E0XZZ Delivery of Products of Conception, External Approach (ICD-10-PCS; principal; 2016-10-19)
PROC: 3E033VJ Introduction of Other Hormone into Peripheral Vein, Percutaneous Approach (ICD-10-PCS; 2016-10-19)
PROC: 3E0DXGC Introduction of Other Therapeutic Substance into Mouth and Pharynx, External Approach (ICD-10-PCS; 2016-10-19)
DX: O14.94 Unspecified pre-eclampsia, complicating childbirth (principal); Z37.0 Single live birth; E03.9 Hypothyroidism, unspecified; O99.284 Endocrine, nutritional and metabolic diseases complicating childbirth; F17.200 Nicotine dependence, unspecified, uncomplicated; O99.334 Smoking (tobacco) complicating childbirth; Z91.419 Personal history of unspecified adult abuse; Z88.2 Allergy status to sulfonamides; O99.820 Streptococcus B carrier state complicating pregnancy; Z3A.38 38 weeks gestation of pregnancy; O69.89X0 Labor and delivery complicated by other cord complications, not applicable or unspecified

== ENCOUNTER 2016-12-31 07:31 | Day surgery (SDC) | payer OTHER ==
[~2016-12-31] VITALS: Ht 162.6 cm; Wt 97.5 kg
[~2016-12-31 07:31] MED LIST changes: +ADVI200C5 PO; +LEVO137T2 PO; +VALA500T2 PO
[2016-12-31] MEDS ORDERED: LR 1,000 ML IV ONE (07:45)
[2016-12-31] MEDS ORDERED: IBUPROFEN 800 MG TAB PO SCH (08:00)
[2016-12-31 08:04] LABS: MEAN CORPUSCULAR HEMOGLOBIN 27.7 pg (27.0-33.0); MEAN CORPUSCULAR HGB CONC 33.7 g/dl (32.0-36.5); MEAN CORPUSCULAR VOLUME 82.2 fl (80.0-96.0); RED CELL DISTRIBUTION WIDTH 14.8 % (11.5-14.5); WHITE BLOOD COUNT 6.5 K/mm3 (4.0-10.0)
[2016-12-31 08:16] LABS: CONTROL LINE HCG INT CTR LINE PRESENT
[2016-12-31] MEDS ORDERED: BUPIVACAINE/EPIN 0.25% 30 ML VIAL As Ordered ONE (08:33)
[2016-12-31] MEDS ORDERED: ACETAMINOPHEN 650 MG SUPP As Ordered ONE (08:33)
[2016-12-31] MEDS ORDERED: fentaNYL 100 MCG/2 ML INJECTION (J3010) As Ordered ONE ×3 (09:01→09:43)
[2016-12-31] MEDS ORDERED: MIDAZOLAM INJ 2 MG/2 ML VIAL (J2250) As Ordered ONE (09:01)
[2016-12-31] MEDS ORDERED: PROPOFOL 200 MG/20 ML VIAL As Ordered ONE (09:14)
[2016-12-31] MEDS ORDERED: GLYCOPYRROLATE INJ 0.2 MG/ML 2 ML VIAL As Ordered ONE ×2 (09:14→09:15)
[2016-12-31] MEDS ORDERED: LIDOCAINE 2% INJ 100 MG/5 ML SDV (FOR ANES.) As Ordered ONE (09:14)
[2016-12-31] MEDS ORDERED: ROCURONIUM BROMIDE 50 MG/5 ML VIAL/SYRINGE As Ordered ONE (09:14)
[2016-12-31] MEDS ORDERED: KETOROLAC 60 MG/2 ML VIAL (J1885) As Ordered ONE (09:15)
[2016-12-31] MEDS ORDERED: NEOSTIGMINE 10 MG/10 ML VIAL (J2710) As Ordered ONE (09:15)
[2016-12-31] MEDS ORDERED: ONDANSETRON 4MG/2ML VIAL (J2405) As Ordered ONE ×2 (09:15→11:47)
[2016-12-31] MEDS ORDERED: dexameTHASONE 4 MG/ML 1ML VIAL (J1100) As Ordered ONE (09:15)
[2016-12-31] MEDS ORDERED: PERC5TAB12 PO (09:33)
[2016-12-31] MEDS: fentaNYL 100 MCG/2 ML INJECTION (J3010) IV PRN ×4 (09:45→10:07)
[2016-12-31] MEDS ORDERED: MEPERIDINE INJ 25 MG/ML VIAL (J2175) As Ordered ONE (09:52)
[2016-12-31] MEDS: MEPERIDINE INJ 25 MG/ML VIAL (J2175) IV PRN ×2 (09:54→09:59)
[2016-12-31] MEDS ORDERED: PERCOCET 5MG/325MG TAB As Ordered ONE (09:58)
[2016-12-31] MEDS: PERCOCET 5MG/325MG TAB PO PRN ×2 (10:00→10:27)
--- NOTE | 2016-12-31 10:14 | RO ---
DATE OF PROCEDURE: 12/31/2016 Olivia is a 26-year-old female multiparous woman who desires permanent tubal sterilization. After counseling in the office, a decision was made for laparoscopic bilateral tubal ligation using Filshie clip. PREOPERATIVE DIAGNOSIS: Multiparity, desires permanent tubal sterilization. POSTOPERATIVE DIAGNOSIS: Multiparity, desires permanent tubal sterilization. PROCEDURE: Laparoscopic bilateral tubal ligation using Filshie clip. SURGEON: Dr. Kendell Landeros. SENIOR ACTUARIAL ANALYST: ANESTHESIA: General. COMPLICATIONS: None. ESTIMATED BLOOD LOSS: Less than 10 mL. FINDINGS: Normal-appearing tubes and ovaries. PROCEDURE: After obtaining informed consent, the patient was taken to the operating room where general anesthetic was found to be adequate. She was draped and prepped usual sterile fashion in dorsal lithotomy position. At this point a straight catheter bladder was performed for approximately 75 mL of clear urine. We then placed a sponge stick in the vagina for uterine manipulation. Attention was then turned to the abdomen where a 5 mm infraumbilical incision was made using the Veress needle. The abdomen was insufflated with CO2 gas to approximately 3.5 liters. We then placed a 5 mm trocar as well as the laparoscope under direct visualization. The patient was placed in Trendelenburg, an 8 mm right lateral port was placed. The fallopian tubes were identified. Then a Filshie clip was then applied approximately 2-3 cm away from the cornual area of each tube. Pelvis copiously irrigated with normal saline. Instruments removed. The laparoscopic ports were closed using Dermabond. 0.25% Marcaine was placed at the operative site for postoperative pain. The patient tolerated procedure well. She was then transferred to recovery room in stable condition. cc: Kendell Landeros DO
[2016-12-31] MEDS ORDERED: LR 1,000 ML IV SCH (10:15)
[2016-12-31] MEDS ORDERED: ONDANSETRON 4MG/2ML VIAL (J2405) IV PRN (10:15)
[2016-12-31] MEDS ORDERED: PERCOCET 5MG/325MG TAB PO ONE (10:45)
[2016-12-31] MEDS ORDERED: SUGAMMADEX SODIUM 500 MG/5 ML VIAL (BRIDION) As Ordered ONE (10:49)
[2016-12-31] MEDS ORDERED: MORPHINE 10 MG/ML 1ML VIAL IV SCH (11:45)
[2016-12-31] MEDS ORDERED: MORPHINE 2 MG/ML 1ML SYRINGE As Ordered ONE (11:49)
[2016-12-31] MEDS: MORPHINE 2 MG/ML 1ML SYRINGE IV SCH ×3 (11:50→12:42)
[2016-12-31 14:30] VITALS: BP 122/78
== END 2016-12-31 14:33 | disposition home or self-care (01) ==
LOC: M SDC 07:31
PROVIDERS: ATTEND Obstetrics & Gynecology
DX: Z30.2 Encounter for sterilization (principal); E03.9 Hypothyroidism, unspecified; R23.3 Spontaneous ecchymoses; Z79.899 Other long term (current) drug therapy; Z88.2 Allergy status to sulfonamides

== ENCOUNTER 2017-01-17 11:49 | Emergency (ER) | payer OTHER ==
[~2017-01-17] VITALS: Ht 162.6 cm; Wt 95.5 kg
[2017-01-17 11:49] VITALS: BP 131/77
[~2017-01-17 11:49] MED LIST changes: +PERC5TAB12 PO
== END 2017-01-17 12:36 | disposition home or self-care (01) ==
LOC: M ED 11:49
DX: J00 Acute nasopharyngitis [common cold] (principal); B34.9 Viral infection, unspecified; E07.9 Disorder of thyroid, unspecified; Z79.899 Other long term (current) drug therapy; Z88.2 Allergy status to sulfonamides

== ENCOUNTER 2018-03-17 19:27 | Emergency (ER) | payer OTHER ==
[2018-03-17 20:36] LABS: BASO # 0.1 10^3/uL (0.0-0.2); BASO % 0.5 % (0.0-1.0); EOS # 0.5 10^3/uL (0.0-0.50); EOS % 3.3 % (0.0-3.0); HEMATOCRIT 36.3 % (36.0-47.0); IMMATURE GRANULOCYTE % 0.5 % (0-3.0); LYMPH # 2.8 10^3/uL (1.5-6.5); LYMPH % 19.2 % (24.0-44.0); MEAN CORPUSCULAR HEMOGLOBIN 25.5 pg (27.0-33.0); MEAN CORPUSCULAR HGB CONC 30.3 g/dl (32.0-36.5); MEAN CORPUSCULAR VOLUME 84.2 fl (80.0-96.0); MONO % 6.6 % (0.0-5.0); NEUTROPHILS # 10.3 10^3/uL (1.8-7.7); NEUTROPHILS % 69.9 % (36.0-66.0); PLATELET COUNT, AUTOMATED 372 10^3/uL (150-450); RED BLOOD COUNT 4.31 10^6/uL (4.00-5.40); RED CELL DISTRIBUTION WIDTH 16.8 % (11.5-14.5); WHITE BLOOD COUNT 14.7 10^3/uL (4.0-10.0)
[2018-03-17] MEDS: NS 1,000 ML IV (20:39)
[2018-03-17] MEDS: ONDANSETRON 4MG/2ML VIAL (J2405) IV (20:39)
[2018-03-17] MEDS: KETOROLAC 30 MG/ML VIAL (J1885) IV (20:40)
[2018-03-17 20:48] LABS: KETONE, URINE AUTO RFX TRACE mg/dL (NEGATIVE); MUCUS, URINE RFX LARGE (NEGATIVE); NITRITE, URINE AUTO RFX NEGATIVE (NEGATIVE); RBC, URINE AUTO RFX 15 /HPF (0-3); SPECIFIC GRAVITY UR AUTO RFX 1.038 (1.002-1.035); SQUAM EPITHELIAL CELL UR AURFX 13 /HPF (0-6); TRANSITIONAL EPITHELIAL AU RFX 1 /HPF
[2018-03-17 20:49] LABS: LEUKOCYTE ESTERASE UR AUTO RFX 2+ (NEGATIVE); WBC, URINE AUTO RFX 157 /HPF (0-3)
[2018-03-17 21:05] LABS: ANION GAP 9 MEQ/L (8-16); BLOOD UREA NITROGEN 14 MG/DL (7-18); CARBON DIOXIDE LEVEL 30 MEQ/L (21-32); CHLORIDE LEVEL 100 MEQ/L (98-107); CREATININE FOR GFR 0.87 MG/DL (0.55-1.30); GLOMERULAR FILTRATION RATE > 60.0 (>60); GLUCOSE, FASTING 75 MG/DL (70-100); HCG, SERUM QUANTITATIVE < 1.0 MIU/ML; POTASSIUM SERUM 4.3 MEQ/L (3.5-5.1); SODIUM LEVEL 139 MEQ/L (136-145)
[2018-03-17] MEDS ORDERED: ISOVUE-370 76% 100ML VIAL (Q9967) As Ordered (22:11)
[2018-03-17] MEDS: NITROFURANTOIN (MACROBID) 100 MG CAP PO (23:57)
[2018-03-17] MEDS: metroNIDAZOLE (FLAGYL) 500 MG TAB PO (23:57)
[2018-03-18 01:10] LABS: CHLAMYDIA DNA AMPLIFICATION NEGATIVE (NEGATIVE); GC DNA AMPLIFICATION POSITIVE (NEGATIVE)
== END 2018-03-18 00:12 | disposition home or self-care (01) ==
LOC: M ED 03-18 00:12
DX: N39.0 Urinary tract infection, site not specified (principal); A59.9 Trichomoniasis, unspecified; E03.9 Hypothyroidism, unspecified; F32.9 Major depressive disorder, single episode, unspecified; R10.31 Right lower quadrant pain
CPT/HCPCS: J2405

== ENCOUNTER 2018-03-21 15:41 | Emergency (ER) | payer OTHER ==
[2018-03-21] MEDS: LIDOCAINE 1% SDV 5 ML VIAL DILUENT (16:07)
[2018-03-21] MEDS: cefTRIAXone SOD 250 MG VIAL (J0696) IM (16:07)
[2018-03-21] MEDS: AZITHROMYCIN 250 MG TAB PO (16:07)
== END 2018-03-21 16:38 | disposition home or self-care (01) ==
LOC: M ED 15:41
DX: A54.9 Gonococcal infection, unspecified (principal); E03.9 Hypothyroidism, unspecified; F17.210 Nicotine dependence, cigarettes, uncomplicated
CPT/HCPCS: J0696

== ENCOUNTER 2020-01-21 11:19 | Inpatient (IN) | payer OTHER ==
[~2020-01-21] VITALS: Ht 162.6 cm; Wt 83.1 kg
[~2020-01-21 11:19] MED LIST changes: -/ESOM40CA GT; -ACET50TA PO; -DOCU10ELUD PO; +DOCU5LIQ PO; +FLAG500T PO; +KETO10TAB PO; +MACR100C43 PO; +MAPA500T17 PO; +MAPA500T2 PO; +NEXI1CAP3 GT; -VALA500T2 PO; +VALA500T5 PO; +ZOFR4TAB14 PO
[2020-01-21] MEDS ORDERED: MAPA500C PO (11:41)
[2020-01-21 11:43] LABS: VENOUS BASE EXCESS -9.7 (-2.0-2.0); VENOUS HCO3 15.6 MEQ/L (23.0-27.0); VENOUS O2 SATURATION 99.3 % (60.0-80.0); VENOUS PARTIAL PRESSURE CO2 32.2 mmHg (38.0-50.0); VENOUS PARTIAL PRESSURE O2 177.1 mmHg (30.0-50.0); VENOUS PH 7.302 UNITS (7.330-7.430); VENOUS STANDARD HCO3 16.8 MEQ/L; VENOUS TOTAL CO2 16.5 MEQ/L (24.0-28.0)
[2020-01-21 11:44] LABS: BASO # 0.1 10^3/uL (0.0-0.2); BASO % 0.9 % (0.0-1.0); EOS # 0.2 10^3/uL (0.0-0.5); EOS % 2.1 % (0.0-3.0); HEMATOCRIT 36.7 % (36.0-47.0); HEMOGLOBIN 11.4 g/dl (12.0-15.5); LYMPH % 11.6 % (24.0-44.0); MEAN CORPUSCULAR HEMOGLOBIN 27.3 pg (27.0-33.0); MEAN CORPUSCULAR HGB CONC 31.1 g/dl (32.0-36.5); MONO # 0.6 10^3/uL (0.0-0.8); MONO % 6.7 % (0.0-5.0); NEUTROPHILS # 6.9 10^3/uL (1.5-8.5); NEUTROPHILS % 78.4 % (36.0-66.0); PLATELET COUNT, AUTOMATED 347 10^3/uL (150-450); RED BLOOD COUNT 4.17 10^6/uL (4.00-5.40); WHITE BLOOD COUNT 8.8 10^3/uL (4.0-10.0)
[2020-01-21 12:19] LABS: HCG, SERUM QUALITATIVE NEGATIVE (NEGATIVE)
[2020-01-21] MEDS ORDERED: NS 1,000 ML IV ONE (12:30)
[2020-01-21 12:57] LABS: ACETAMINOPHEN LEVEL 10.5 UG/ML (10.0-30.0); ALBUMIN 4.1 GM/DL (3.2-5.2); ALT/SGPT 13 U/L (12-78); BILIRUBIN,DIRECT 0.1 MG/DL (0.0-0.2); BILIRUBIN,TOTAL 0.4 MG/DL (0.2-1.0); BLOOD UREA NITROGEN 17 MG/DL (7-18); CALCIUM LEVEL 9.1 MG/DL (8.5-10.1); CARBON DIOXIDE LEVEL 18 MEQ/L (21-32); CHLORIDE LEVEL 105 MEQ/L (98-107); CPK CREATINE PHOSPHOKINASE 144 U/L (26-192); CREATININE FOR GFR 1.47 MG/DL (0.55-1.30); ETHYL ALCOHOL (ETHANOL) < 0.003 % (0.000-0.010); GLOMERULAR FILTRATION RATE 44.7 (>60); GLUCOSE, FASTING 159 MG/DL (70-100); POTASSIUM SERUM 3.5 MEQ/L (3.5-5.1); SALICYLATE LEVEL 3.5 MG/DL (5.0-30.0); SODIUM LEVEL 138 MEQ/L (136-145); TOTAL PROTEIN 7.5 GM/DL (6.4-8.2)
[2020-01-21 13:51] LABS: AMPHETAMINES LEVEL URINE POSITIVE (NEGATIVE); BARBITURATES URINE NEGATIVE (NEGATIVE); BENZODIAZEPINES URINE NEGATIVE (NEGATIVE); CANNABINOIDS URINE POSITIVE (NEGATIVE); COCAINE METABOLITE URINE POSITIVE (NEGATIVE); METHADONE URINE NEGATIVE (NEGATIVE); OPIATES URINE NEGATIVE (NEGATIVE); PHENCYCLIDINE URINE NEGATIVE (NEGATIVE)
--- NOTE | 2020-01-21 16:54 | ECGEPIP ---
[facility] - ED Test Date: 2020-01-21 Pat Name: CHERIE BALDWIN Department: Room: - Gender: Female Director [facility]: JEN : 1990 Requested By: Hilary León Order Number: [id number] Reading MD: Hilary León Measurements Intervals [place] Rate: 106 P: 75 UT: 143 QRS: 34 QRSD: 101 T: 34 QT: 365 QTc: 485 Interpretive Statements SINUS TACHYCARDIA NONSPECIFIC T-WAVE ABNORMALITY ABNORMAL RHYTHM ECG INCREASED RATE 12/29/14 Electronically Signed on 01-21-2020 16:54:01 EDT by Hilary León
[2020-01-22] MEDS ORDERED: ALPRAZolam 0.5 MG TAB PO ONE (14:00)
[2020-01-22] MEDS ORDERED: traZODone 50 MG TAB PO PRN (14:30)
[2020-01-22] MEDS ORDERED: OLANZapine ORAL DISINTEGRATING TAB 5MG PO PRN (14:30)
[2020-01-22] MEDS ORDERED: MOM 30ML SUSPENSION UDC PO PRN (14:30)
[2020-01-22] MEDS ORDERED: MAALOX 30 ML SUSP *UDC PO PRN (14:30)
[2020-01-22] MEDS ORDERED: ACETAMINOPHEN TAB 650MG DOSE (2X325MG) PO PRN (14:30)
[2020-01-22 16:06] VITALS: BP 126/89
[2020-01-23 06:32] VITALS: BP 146/82
[2020-01-23] MEDS: NICOTINE 21MG/24HR 1 EA TRANSDERMAL TD SCH (08:54)
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
[2020-01-23] MEDS: LEVOTHYROXINE 25MCG TABLET (0.025MG) PO SCH (16:43)
[2020-01-23 16:53] VITALS: BP 142/85
[2020-01-23 18:41] LABS: BLOOD UREA NITROGEN 11 MG/DL (7-18); CALCIUM LEVEL 9.2 MG/DL (8.5-10.1); CARBON DIOXIDE LEVEL 27 MEQ/L (21-32); CHLORIDE LEVEL 105 MEQ/L (98-107); CREATININE FOR GFR 0.94 MG/DL (0.55-1.30); GLOMERULAR FILTRATION RATE > 60.0 (>60); GLUCOSE, FASTING 93 MG/DL (70-100); POTASSIUM SERUM 3.8 MEQ/L (3.5-5.1); SODIUM LEVEL 138 MEQ/L (136-145)
[2020-01-24] MEDS: LEVOTHYROXINE 25MCG TABLET (0.025MG) PO SCH (06:10)
[2020-01-24 06:33] VITALS: BP 120/72
[2020-01-24] MEDS: NICOTINE 21MG/24HR 1 EA TRANSDERMAL TD SCH (09:00)
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
[2020-01-24] MEDS ORDERED: LEVO25TA5 PO (11:21)
== END 2020-01-24 12:15 | disposition home or self-care (01) | DRG 754 ==
LOC: M ED 11:19 → EDBD 11:19 → M ED INP 01-22 14:24 → M PSY 01-22 16:00
PROVIDERS: ADMIT Psychiatry & Neurology Addiction Medicine; ATTEND Psychiatry & Neurology Psychiatry
DX: F32.9 Major depressive disorder, single episode, unspecified (principal); F15.10 Other stimulant abuse, uncomplicated; F12.10 Cannabis abuse, uncomplicated; F17.210 Nicotine dependence, cigarettes, uncomplicated; Z88.2 Allergy status to sulfonamides; E03.9 Hypothyroidism, unspecified

== ENCOUNTER 2020-04-14 23:25 | Emergency (ER) | payer OTHER ==
[~2020-04-14] VITALS: Ht 162.6 cm; Wt 86.4 kg
[~2020-04-14 23:25] MED LIST changes: +LEVO25TA5 PO; +MAPA500C PO
[2020-04-15 00:22] LABS: HEMATOCRIT 36.4 % (36.0-47.0); HEMOGLOBIN 11.4 g/dl (12.0-15.5); MEAN CORPUSCULAR HGB CONC 31.3 g/dl (32.0-36.5); MEAN CORPUSCULAR VOLUME 86.3 fl (80.0-96.0); PLATELET COUNT, AUTOMATED 379 10^3/uL (150-450); RED BLOOD COUNT 4.22 10^6/uL (4.00-5.40)
[2020-04-15 00:36] LABS: HCG, SERUM QUALITATIVE NEGATIVE (NEGATIVE)
[2020-04-15 00:48] LABS: AMPHETAMINES LEVEL URINE NEGATIVE (NEGATIVE); BARBITURATES URINE NEGATIVE (NEGATIVE); BENZODIAZEPINES URINE NEGATIVE (NEGATIVE); CANNABINOIDS URINE POSITIVE (NEGATIVE); COCAINE METABOLITE URINE POSITIVE (NEGATIVE); METHADONE URINE NEGATIVE (NEGATIVE); OPIATES URINE NEGATIVE (NEGATIVE); PHENCYCLIDINE URINE NEGATIVE (NEGATIVE)
[2020-04-15] MEDS ORDERED: ACETAMINOPHEN TAB 650MG DOSE (2X325MG) PO ONE (01:00)
[2020-04-15 01:01] LABS: ALT/SGPT 9 U/L (12-78); BILIRUBIN,DIRECT < 0.1 MG/DL (0.0-0.2); BILIRUBIN,TOTAL 0.3 MG/DL (0.2-1.0); BLOOD UREA NITROGEN 12 MG/DL (7-18); CALCIUM LEVEL 9.3 MG/DL (8.5-10.1); CARBON DIOXIDE LEVEL 23 MEQ/L (21-32); CHLORIDE LEVEL 104 MEQ/L (98-107); CREATININE FOR GFR 1.13 MG/DL (0.55-1.30); ETHYL ALCOHOL (ETHANOL) < 0.003 % (0.000-0.010); GLOMERULAR FILTRATION RATE > 60.0 (>60); GLUCOSE, FASTING 86 MG/DL (70-100); POTASSIUM SERUM 4.2 MEQ/L (3.5-5.1); SALICYLATE LEVEL 5.1 MG/DL (5.0-30.0); SODIUM LEVEL 136 MEQ/L (136-145); TOTAL PROTEIN 7.3 GM/DL (6.4-8.2)
[2020-04-15 01:02] LABS: ACETAMINOPHEN LEVEL < 2.0 UG/ML (10.0-30.0)
[2020-04-15 01:16] LABS: RSV AMPLIFICATION NEGATIVE (NEGATIVE)
[2020-04-15 02:09] LABS: FREE T4 0.77 NG/DL (0.76-1.46)
[2020-04-15 02:12] VITALS: BP 128/78
== END 2020-04-15 02:19 | disposition home or self-care (01) ==
LOC: M ED 23:25
DX: F43.0 Acute stress reaction (principal); E03.9 Hypothyroidism, unspecified; F41.9 Anxiety disorder, unspecified; F32.9 Major depressive disorder, single episode, unspecified; F17.200 Nicotine dependence, unspecified, uncomplicated; F12.10 Cannabis abuse, uncomplicated; Z79.899 Other long term (current) drug therapy; Z88.2 Allergy status to sulfonamides
CPT/HCPCS: 80048; 80076; 80307; 84439; 84443; 84703; 85027; 87631; 99284; G0480

== ENCOUNTER 2021-06-11 15:41 | Emergency (ER) | payer OTHER ==
[~2021-06-11] VITALS: Ht 162.6 cm; Wt 84.7 kg
[2021-06-11 16:34] LABS: BASO # 0.1 10^3/uL (0.0-0.2); BASO % 0.5 % (0.0-1.0); EOS # 0.2 10^3/uL (0.0-0.5); EOS % 1.6 % (0.0-3.0); HEMATOCRIT 34.8 % (36.0-47.0); LYMPH # 1.6 10^3/uL (1.5-5.0); LYMPH % 16.9 % (24.0-44.0); MEAN CORPUSCULAR HEMOGLOBIN 27.6 pg (27.0-33.0); MEAN CORPUSCULAR HGB CONC 31.6 g/dl (32.0-36.5); MEAN CORPUSCULAR VOLUME 87.4 fl (80.0-96.0); MONO # 0.7 10^3/uL (0.0-0.8); NEUTROPHILS # 7.1 10^3/uL (1.5-8.5); NEUTROPHILS % 73.5 % (36.0-66.0); PLATELET COUNT, AUTOMATED 340 10^3/uL (150-450); RED BLOOD COUNT 3.98 10^6/uL (4.00-5.40); WHITE BLOOD COUNT 9.7 10^3/uL (4.0-10.0)
[2021-06-11 16:50] LABS: BLOOD UREA NITROGEN 10 MG/DL (7-18); CALCIUM LEVEL 9.2 MG/DL (8.5-10.1); CARBON DIOXIDE LEVEL 28 MEQ/L (21-32); CHLORIDE LEVEL 108 MEQ/L (98-107); CREATININE FOR GFR 0.74 MG/DL (0.55-1.30); GLOMERULAR FILTRATION RATE > 60.0 (>60); GLUCOSE, FASTING 84 MG/DL (70-100); SODIUM LEVEL 139 MEQ/L (136-145)
[2021-06-11 18:10] LABS: GC DNA AMPLIFICATION POSITIVE (NEGATIVE)
[2021-06-11] MEDS ORDERED: DOXYCYCLINE HYCLATE 100MG TABLET PO ONE (19:00)
[2021-06-11] MEDS ORDERED: LIDOCAINE 1% SDV 5ML VIAL DILUENT ONE (19:00)
[2021-06-11] MEDS ORDERED: cefTRIAXone 500MG VIAL (J0696 PER 250MG) IM ONE (19:00)
[2021-06-11] MEDS ORDERED: DOXY-350 PO (19:04)
[2021-06-11 19:21] VITALS: BP 140/86
== END 2021-06-11 19:38 | disposition home or self-care (01) ==
LOC: M ED 15:41
DX: A54.24 Gonococcal female pelvic inflammatory disease (principal); R19.5 Other fecal abnormalities; Z87.59 Personal history of other complications of pregnancy, childbirth and the puerperium; Z87.448 Personal history of other diseases of urinary system; Z86.19 Personal history of other infectious and parasitic diseases; F17.200 Nicotine dependence, unspecified, uncomplicated; F12.10 Cannabis abuse, uncomplicated; Z88.2 Allergy status to sulfonamides
CPT/HCPCS: 36415; 76856; 80048; 81001; 84702; 85025; 86850; 86900; 86901; 87086; 87210; 87661; 93976; 96372; 99284; J0696

== ENCOUNTER → 2023-05-24 | Outpatient (REF) | payer OTHER ==
[~2023-05-24] MED LIST changes: +ALBU2.5V10 INH; -ALBU83IN INH; +DOXY-444 PO
[2023-05-24 17:30] LABS: BASO % 0.7 % (0.0-1.0); EOS # 0.1 10^3/uL (0.0-0.5); EOS % 1.4 % (0.0-3.0); HEMATOCRIT 36.6 % (36.0-47.0); HEMOGLOBIN 11.3 g/dl (12.0-15.5); LYMPH # 1.5 10^3/uL (1.5-5.0); LYMPH % 26.4 % (24.0-44.0); MEAN CORPUSCULAR HEMOGLOBIN 26.6 pg (27.0-33.0); MEAN CORPUSCULAR HGB CONC 30.9 g/dl (32.0-36.5); MEAN CORPUSCULAR VOLUME 86.1 fl (80.0-96.0); MONO # 0.4 10^3/uL (0.0-0.8); MONO % 7.2 % (2.0-8.0); NEUTROPHILS # 3.6 10^3/uL (1.5-8.5); NEUTROPHILS % 63.9 % (36.0-66.0); PLATELET COUNT, AUTOMATED 317 10^3/uL (150-450); RED BLOOD COUNT 4.25 10^6/uL (4.00-5.40); WHITE BLOOD COUNT 5.6 10^3/uL (4.0-10.0)
[2023-05-24 17:59] LABS: THYROID STIMULATING HORMONE 5.103 uIU/ML (0.55-4.78)
[2023-05-24 18:01] LABS: ALKALINE PHOSPHATASE 52 U/L (46-116); ALT/SGPT 16 U/L (7.0-40); AST/SGOT 12 U/L (<34); BILIRUBIN,TOTAL 0.5 MG/DL (0.3-1.2); BLOOD UREA NITROGEN 12 MG/DL (9-23); CALCIUM LEVEL 9.3 MG/DL (8.5-10.1); CARBON DIOXIDE LEVEL 30 MMOL/L (20-31); CHLORIDE LEVEL 104 MMOL/L (98-107); CHOLESTEROL LEVEL 178 MG/DL (<200); CHOLESTEROL RISK RATIO 2.83 (<5); CREATININE FOR GFR 0.77 MG/DL (0.55-1.30); GLOMERULAR FILTRATION RATE > 60.0 (>60); GLUCOSE, FASTING 78 MG/DL (60-100); HDL CHOLESTEROL 62.7 MG/DL (>40); LDL CHOLESTEROL 101.5 MG/DL (<100); NON-HDL-C 115.3 MG/DL; POTASSIUM SERUM 4.4 MMOL/L (3.5-5.1); SODIUM LEVEL 138 MMOL/L (136-145); TRIGLYCERIDES LEVEL 69 MG/DL (<150)
[2023-05-24 18:02] LABS: TOTAL 25(OH) VITAMIN D 30.8 NG/ML (20.0-100.0)
== END ==
LOC: M LAB REF 16:31
PROVIDERS: ATTEND Nurse Practitioner Family
DX: E66.9 Obesity, unspecified (principal)

== ENCOUNTER → 2023-08-23 | Outpatient (REF) | payer OTHER ==
[~2023-08-23] MED LIST changes: +DOXY-440 PO; -DOXY-444 PO
== END ==
LOC: M LAB REF 17:43
PROVIDERS: ATTEND Nurse Practitioner Family
DX: E03.9 Hypothyroidism, unspecified (principal)

== ENCOUNTER → 2024-05-23 | Outpatient (REF) | payer OTHER ==
[2024-05-23 17:36] LABS: BASO # 0.1 10^3/uL (0.0-0.2); BASO % 1.1 % (0.0-1.0); EOS # 0.1 10^3/uL (0.0-0.5); EOS % 2.6 % (0.0-3.0); HEMATOCRIT 35.1 % (36.0-47.0); LYMPH # 1.7 10^3/uL (1.5-5.0); LYMPH % 31.1 % (24.0-44.0); MEAN CORPUSCULAR HEMOGLOBIN 27.6 pg (27.0-33.0); MEAN CORPUSCULAR HGB CONC 31.3 g/dl (32.0-36.5); MEAN CORPUSCULAR VOLUME 88.2 fl (80.0-96.0); MONO # 0.4 10^3/uL (0.0-0.8); MONO % 7.7 % (2.0-8.0); NEUTROPHILS % 57.1 % (36.0-66.0); PLATELET COUNT, AUTOMATED 286 10^3/uL (150-450); RED BLOOD COUNT 3.98 10^6/uL (4.00-5.40); WHITE BLOOD COUNT 5.3 10^3/uL (4.0-10.0)
[2024-05-23 17:39] LABS: FREE T4 0.88 NG/DL (0.89-1.76)
[2024-05-23 17:40] LABS: ALBUMIN 3.8 G/DL (3.2-5.2); ALKALINE PHOSPHATASE 43 U/L (35-104); ALT/SGPT 12 U/L (7.0-40); AST/SGOT 12 U/L (<34); BILIRUBIN,TOTAL 0.4 MG/DL (0.3-1.2); BLOOD UREA NITROGEN 10 MG/DL (9-23); CALCIUM LEVEL 9.6 MG/DL (8.5-10.1); CARBON DIOXIDE LEVEL 29 MMOL/L (20-31); CHLORIDE LEVEL 106 MMOL/L (98-107); CHOLESTEROL LEVEL 177 MG/DL (<200); CHOLESTEROL RISK RATIO 2.53 (<5); CREATININE FOR GFR 0.77 MG/DL (0.55-1.30); GLOMERULAR FILTRATION RATE > 60.0 (>60); GLUCOSE, FASTING 86 MG/DL (60-100); HDL CHOLESTEROL 69.8 MG/DL (>40); IRON (FE) 21 UG/DL (50-170); LDL CHOLESTEROL 96.4 MG/DL (<100); MAGNESIUM LEVEL 1.8 MG/DL (1.8-2.4); NON-HDL-C 107.2 MG/DL; POTASSIUM SERUM 4.1 MMOL/L (3.5-5.1); SODIUM LEVEL 139 MMOL/L (136-145); THYROID STIMULATING HORMONE 7.051 uIU/ML (0.55-4.78); TOTAL IRON BINDING CAPACITY 418 UG/DL (250-425); TOTAL PROTEIN 7.1 G/DL (5.7-8.2); TRIGLYCERIDES LEVEL 54 MG/DL (<150)
[2024-05-23 17:41] LABS: FOLATE 11.1 NG/ML (>5.4); VITAMIN B12 LEVEL 434 PG/ML (211-911)
[2024-05-23 18:01] LABS: HEMOGLOBIN A1c 5.2 % (4.0-6.0)
== END ==
LOC: M LAB REF 16:37
PROVIDERS: ATTEND Nurse Practitioner Family
DX: E03.9 Hypothyroidism, unspecified (principal); E66.9 Obesity, unspecified; D64.9 Anemia, unspecified

== ENCOUNTER → 2024-07-23 | Outpatient (REF) | payer OTHER ==
[2024-07-23 18:26] LABS: APPEARANCE, URINE CLEAR (CLEAR); BACTERIA, URINE AUTO NEGATIVE (NEGATIVE); BILIRUBIN, URINE AUTO NEGATIVE (NEGATIVE); BLOOD, URINE BLOOD 1+ (NEGATIVE); COLOR, URINE YELLOW (YELLOW); GLUCOSE, URINE (UA) AUTO NEGATIVE (NEGATIVE); KETONE, URINE AUTO NEGATIVE (NEGATIVE); LEUKOCYTE ESTERASE, URINE AUTO NEGATIVE (NEGATIVE); MUCUS, URINE SMALL (NEGATIVE); NITRITE, URINE AUTO NEGATIVE (NEGATIVE); PROTEIN, URINE AUTO NEGATIVE (NEGATIVE); RBC, URINE AUTO 0 /HPF (0-3); SPECIFIC GRAVITY URINE AUTO 1.012 (1.002-1.035); SQUAMOUS EPITHELIAL CELL UR AU 2 /HPF (0-6); UROBILINOGEN, URINE AUTO 0.2 mg/dL (0.0-2.0); WBC, URINE AUTO 2 /HPF (0-3)
== END ==
LOC: M LAB REF 17:32
PROVIDERS: ATTEND Physician Assistant Medical
DX: N39.0 Urinary tract infection, site not specified (principal)

== ENCOUNTER → 2024-08-17 | Outpatient (CLI) | payer OTHER ==
[2024-08-17 17:53] LABS: BASO % 0.5 % (0.0-1.0); EOS # 0.2 10^3/uL (0.0-0.5); EOS % 2.7 % (0.0-3.0); HEMATOCRIT 35.1 % (36.0-47.0); HEMOGLOBIN 11.1 g/dl (12.0-15.5); LYMPH # 1.6 10^3/uL (1.5-5.0); LYMPH % 22.2 % (24.0-44.0); MEAN CORPUSCULAR HEMOGLOBIN 27.8 pg (27.0-33.0); MEAN CORPUSCULAR HGB CONC 31.6 g/dl (32.0-36.5); MONO # 0.6 10^3/uL (0.0-0.8); MONO % 7.5 % (2.0-8.0); NEUTROPHILS # 4.9 10^3/uL (1.5-8.5); NEUTROPHILS % 66.8 % (36.0-66.0); PLATELET COUNT, AUTOMATED 301 10^3/uL (150-450); RED BLOOD COUNT 3.99 10^6/uL (4.00-5.40); WHITE BLOOD COUNT 7.3 10^3/uL (4.0-10.0)
[2024-08-17 18:06] LABS: PERCENT SATURATION 5.4 % (13.2-45.0)
[2024-08-17 18:08] LABS: FERRITIN 2.5 NG/ML (7.3-270.7); THYROID STIMULATING HORMONE 12.549 uIU/ML (0.55-4.78)
[2024-08-17 18:09] LABS: FREE T4 0.91 NG/DL (0.89-1.76)
== END ==
LOC: M LAB 17:14
PROVIDERS: ATTEND Nurse Practitioner Family
DX: E03.9 Hypothyroidism, unspecified (principal); D64.9 Anemia, unspecified

== ENCOUNTER → 2024-11-23 | Outpatient (REF) | payer OTHER ==
[2024-11-23 12:42] LABS: MAGNESIUM LEVEL 2.0 MG/DL (1.8-2.4)
== END ==
LOC: M LAB REF 12:04
PROVIDERS: ATTEND Nurse Practitioner Family
DX: E61.1 Iron deficiency (principal); E03.9 Hypothyroidism, unspecified; R25.2 Cramp and spasm

== ENCOUNTER → 2025-01-28 | Outpatient (REF) | payer OTHER | LOC: M LAB REF 13:47 | PROVIDERS: ATTEND Nurse Practitioner Family | DX: E03.9 Hypothyroidism, unspecified (principal) ==

== ENCOUNTER → 2025-03-29 | Outpatient (REF) | payer OTHER | LOC: M LAB REF 15:58 | PROVIDERS: ATTEND Nurse Practitioner Family | DX: E03.9 Hypothyroidism, unspecified (principal) ==